=== PATIENT | female | born 1935 | race Caucasian/White ===

== ENCOUNTER → 2018-06-20 | Outpatient (CLI) | payer MEDICARE, BC | END | disposition home or self-care (01) | LOC: PF 12:18 | PROVIDERS: ATTEND Internal Medicine Critical Care Medicine | DX: R06.09 Other forms of dyspnea (principal) | CPT/HCPCS: 94618 ==

== ENCOUNTER 2023-05-25 10:51 | Emergency (ER) | payer MEDICARE, BC ==
[~2023-05-25] VITALS: Ht 167.6 cm; Wt 80.0 kg
[~2023-05-25 10:51] MED LIST: ACET-2708 PO; ASCO500C15 PO; BUDE0.5A3 IH; CALC-1209 PO; CHOL400D7 PO; CRAN500T4 PO; DILT120C88 MT; ESCI-7 PO; FAMO20TA8 PO; FURO-151 PO; GABA-529 PO; GABA-534 PO; IPRA3AMP31 NEB; METF-414 PO; MULT-1203 PO; NINT150C PO; POTA-204 PO; PRED10TA23 PO; S-AD200T8 PO; TRAM50TA3 PO; XAR15 PO
[2023-05-25 11:00] VITALS: O2SAT 96
[2023-05-25] MEDS ORDERED: SODIUM CHLORIDE 0.9% 1,000 ML IV ONE (11:00)
[2023-05-25 11:20] LABS: HEMATOCRIT. 37.7 % (36.0-48.0); HEMOGLOBIN. 12.5 g/dL (12.0-16.0); MEAN CORPUSCULAR HEMOGLOBIN 31.1 pg (28.0-32.0); MEAN CORPUSCULAR HGB CONC 33.2 g/dL (31.0-37.0); MEAN CORPUSCULAR VOLUME 93.9 fL (81.0-99.0); PLATELET 403 x1000/uL (130-400); RED BLOOD CELL COUNT 4.01 mill/uL (4.2-5.4); RED CELL DISTRIBUTION WIDTH 16.5 % (11.6-14.6); WHITE BLOOD COUNT 13.4 x1000/uL (4.5-11.0)
[2023-05-25 11:21] LABS: DIFFERENTIAL COMMENT 1
[2023-05-25 11:31] LABS: ALANINE AMINOTRANSFERASE 76 IU/L (10-49); ALBUMIN 3.6 g/dL (3.2-4.8); ASPARTATE AMINOTRANSFERASE 34 IU/L (<34); BILIRUBIN TOTAL 0.4 mg/dL (0.1-1.0); CALCIUM 9.3 mg/dL (8.7-10.4); CARBON DIOXIDE 33 mEq/L (21-32); CHLORIDE 98 mEq/L (98-107); CREATININE 0.6 mg/dL (0.6-1.0); GLUCOSE 150 mg/dL (70-105); SODIUM 138 mEq/L (136-145); TROPONIN I HIGH SENSITIVITY 17 ng/L (3.0-34); UREA NITROGEN BLOOD 22 mg/dL (9-23)
[2023-05-25 11:32] LABS: INR 1.1; PROTHROMBIN TIME 11.9 sec (9.6-11.0)
[2023-05-25 12:16] VITALS: BP 103/68; PULSE 89; RESP 20; TEMP 98.3
[2023-05-25 14:35] LABS: ANISOCYTOSIS 1+; PLATELET ESTIMATE SLIGHTLY INCREASED
== END 2023-05-25 15:08 | disposition home or self-care (01) ==
LOC: ER 10:51
DX: I48.91 Unspecified atrial fibrillation (principal); E11.9 Type 2 diabetes mellitus without complications; I11.0 Hypertensive heart disease with heart failure; I50.9 Heart failure, unspecified
CPT/HCPCS: 99284; 71045; 80053; 83880; 85025; 85610; 87040; 84484; 36415; J7030

== ENCOUNTER 2024-12-09 12:16 | Inpatient (IN) | payer MEDICARE, BC ==
[~2024-12-09] VITALS: Ht 167.6 cm; Wt 67.6 kg
[~2024-12-09 12:16] MED LIST changes: +ASCO500C14 PO; -ASCO500C15 PO
[2024-12-09] MEDS ORDERED: FUROSEMIDE 20MG/2ML VIAL IVP ONE (13:30)
[2024-12-09] MEDS: IPRATROPIUM/ALBUTEROL 0.5-3(2.5)MG/3ML NEB HHN ONE (13:44)
[2024-12-09 13:45] VITALS: PULSE 71; RESP 32; O2SAT 97
[2024-12-09] MEDS ORDERED: METHYLPREDNISOLONE 40MG/ML INJ IV ONE (13:45)
[2024-12-09] MEDS: METHYLPREDNISOLONE SOD SUCC 40MG/ML (ACT-O-VIAL) IV NR (14:20)
[2024-12-09 14:48] LABS: BASOPHILS % 0.2 % (0.0-2.0); EOSINOPHILS % 4.4 % (0.0-5.0); HEMATOCRIT. 28.8 % (36.0-48.0); HEMOGLOBIN. 9.4 g/dL (12.0-16.0); LYMPHOCYTES % 26.8 % (20.0-50.0); MEAN PLATELET VOLUME 7.9 fl (7.4-10.4); MONOCYTES % 5.9 % (2.0-8.0); NEUTROPHILS % 62.7 % (40.0-76.0); PLATELET 449 x1000/uL (130-400); RED BLOOD CELL COUNT 3.03 mill/uL (4.2-5.4); RED CELL DISTRIBUTION WIDTH 19.2 % (11.6-14.6)
[2024-12-09 14:59] LABS: CREATININE 0.7 mg/dL (0.6-1.0)
[2024-12-09 15:00] LABS: UREA NITROGEN BLOOD 24 mg/dL (9-23)
[2024-12-09 15:02] LABS: TROPONIN I HIGH SENSITIVITY 8 ng/L (3.0-34)
[2024-12-09 16:25] VITALS: BP 96/59; PULSE 101; RESP 16; TEMP 36.5
[2024-12-09] MEDS ORDERED: METO-385 PO (16:39)
[2024-12-09] MEDS ORDERED: FURO40TA5 PO (16:39)
[2024-12-09 16:40] VITALS: BP 96/59; PULSE 101; RESP 16; TEMP 36.4; O2SAT 87
[2024-12-09] MEDS ORDERED: ONDANSETRON HCL 4MG/2ML INJ IV PRN (16:45)
[2024-12-09] MEDS ORDERED: HYDROCODONE/ACETAMINOPHEN 5/325MG TABLET PO PRN (16:45)
[2024-12-09] MEDS ORDERED: CLONIDINE 0.1MG TABLET PO PRN (16:45)
[2024-12-09] MEDS ORDERED: MAGNESIUM/ALUMINUM HYDROXIDE/SIMETHICONE 30ML UDC PO PRN (16:45)
[2024-12-09] MEDS ORDERED: NALOXONE HCL 0.4MG/ML VIAL IV PRN (17:15)
[2024-12-09] MEDS: ENOXAPARIN 30MG/0.3ML SYR SUBCUT SCH (19:10)
[2024-12-09] MEDS: METHYLPREDNISOLONE SOD SUCC 40MG/ML (ACT-O-VIAL) IV SCH (19:11)
[2024-12-09] MEDS: LEVOFLOXACIN 500MG PREMIX 100 ML IV NR (19:52)
[2024-12-09 20:00] VITALS: BP 91/51; PULSE 94; RESP 18; TEMP 36.5; O2SAT 97
[2024-12-09 22:29] LABS: TROPONIN I HIGH SENSITIVITY 7 ng/L (3.0-34)
[2024-12-09] MEDS: IPRATROPIUM/ALBUTEROL 0.5-3(2.5)MG/3ML NEB NEB SCH (23:37)
[2024-12-09] MEDS: ACETYLCYSTEINE 200MG/ML 20% VIAL 4ML INH SCH (23:37)
[2024-12-09 23:41] VITALS: PULSE 78; RESP 22; O2SAT 97
[2024-12-10] VITALS (11 sets, daily range): BP systolic 92–114; BP diastolic 52–69; PULSE 74–88; RESP 16–20; TEMP 36.1–36.7; O2SAT 92–99
[2024-12-10] MEDS: ACETAMINOPHEN 325MG TABLET PO PRN (02:47)
[2024-12-10] MEDS: GABAPENTIN 100MG CAPSULE PO SCH (08:47)
[2024-12-10] MEDS: METOPROLOL SUCCINATE 50MG ER TABLET PO SCH (08:48)
[2024-12-10] MEDS: FUROSEMIDE 40MG TABLET PO SCH (08:48)
[2024-12-10] MEDS: PANTOPRAZOLE SODIUM 40 MG/VIAL IV SCH (08:49)
[2024-12-10 09:07] LABS: BASOPHILS % 0.0 % (0.0-2.0); EOSINOPHILS % 0.0 % (0.0-5.0); HEMATOCRIT. 28.7 % (36.0-48.0); HEMOGLOBIN. 9.4 g/dL (12.0-16.0); LYMPHOCYTES % 12.2 % (20.0-50.0); MEAN PLATELET VOLUME 8.2 fl (7.4-10.4); MONOCYTES % 0.6 % (2.0-8.0); NEUTROPHILS % 87.2 % (40.0-76.0); PLATELET 434 x1000/uL (130-400); RED BLOOD CELL COUNT 3.06 mill/uL (4.2-5.4); RED CELL DISTRIBUTION WIDTH 18.5 % (11.6-14.6)
[2024-12-10 09:12] LABS: TROPONIN I HIGH SENSITIVITY 5 ng/L (3.0-34)
[2024-12-10] MEDS ORDERED: LEVOFLOXACIN 500MG PREMIX 100 ML IV SCH (11:00)
[2024-12-10] MEDS: LEVOFLOXACIN 500MG PREMIX 100 ML IV SCH (13:06)
[2024-12-10 14:47] LABS: CREATININE 0.7 mg/dL (0.6-1.0); UREA NITROGEN BLOOD 27 mg/dL (9-23)
[2024-12-10] MEDS: LEVOFLOXACIN 250MG PREMIX 50 ML IV SCH (18:11)
[2024-12-11] VITALS (11 sets, daily range): BP systolic 97–116; BP diastolic 57–68; PULSE 84–97; RESP 17–18; TEMP 36.2–36.4; O2SAT 91–95
[2024-12-11] MEDS ORDERED: NINTEDANIB ESYLATE 150 MG PO SCH (11:45)
[2024-12-11] MEDS: DILTIAZEM HCL 120MG CAPSULE ER 24HR PO SCH (12:15)
[2024-12-11] MEDS: ENOXAPARIN 40MG/0.4ML SYR SUBCUT SCH (13:10)
[2024-12-11 16:22] LABS: HEMATOCRIT. 27.5 % (36.0-48.0); HEMOGLOBIN. 9.0 g/dL (12.0-16.0); MEAN PLATELET VOLUME 8.0 fl (7.4-10.4); PLATELET 509 x1000/uL (130-400); RED BLOOD CELL COUNT 2.95 mill/uL (4.2-5.4); RED CELL DISTRIBUTION WIDTH 19.1 % (11.6-14.6)
[2024-12-11 16:48] LABS: CREATININE 0.9 mg/dL (0.6-1.0); UREA NITROGEN BLOOD 33.0 mg/dL (9-23)
[2024-12-11 17:42] LABS: LYMPHOCYTES % MANUAL 9.0 % (20.0-60.0); MONOCYTES % MANUAL 4.0 % (2.0-8.0); NEUTROPHILS % MANUAL 87.0 % (45.0-75.0); PLATELET ESTIMATE INCREASED
[2024-12-11] MEDS: GUAIFENESIN 200MG/10ML SUGAR FREE UDC PO PRN (18:37)
[2024-12-12] VITALS (11 sets, daily range): BP systolic 104–118; BP diastolic 60–78; PULSE 73–92; RESP 16–20; TEMP 34.7–36.6; O2SAT 91–99
[2024-12-12 08:06] LABS: BASOPHILS % 0.1 % (0.0-2.0); EOSINOPHILS % 0.0 % (0.0-5.0); HEMATOCRIT. 28.2 % (36.0-48.0); HEMOGLOBIN. 9.3 g/dL (12.0-16.0); LYMPHOCYTES % 11.1 % (20.0-50.0); MEAN PLATELET VOLUME 8.3 fl (7.4-10.4); MONOCYTES % 3.8 % (2.0-8.0); NEUTROPHILS % 85.0 % (40.0-76.0); PLATELET 504 x1000/uL (130-400); RED BLOOD CELL COUNT 3.03 mill/uL (4.2-5.4); RED CELL DISTRIBUTION WIDTH 19.0 % (11.6-14.6)
[2024-12-12 08:13] LABS: CREATININE 0.7 mg/dL (0.6-1.0); UREA NITROGEN BLOOD 36 mg/dL (9-23)
[2024-12-12] MEDS: CITALOPRAM HYDROBROMIDE 10MG TABLET PO SCH (08:46)
[2024-12-12] MEDS ORDERED: RIVAROXABAN 15 MG TABLET PO SCH (09:00)
[2024-12-12] MEDS: LEVOFLOXACIN 750MG PREMIX 150 ML IV SCH (14:18)
[2024-12-12] MEDS ORDERED: PRED10TA MT (14:44)
[2024-12-12] MEDS ORDERED: LEVO-65 MT (14:44)
[2024-12-12] MEDS ORDERED: GUAI120017 MT (14:44)
== END 2024-12-12 17:53 | disposition home health service (06) | DRG 196 ==
LOC: ER 13:08 → EDBEDREQ 15:17 → EDBEDREQTM 15:17 → ENRESERV 15:30 → 5WST 16:43
PROVIDERS: ADMIT Internal Medicine; ATTEND Internal Medicine
DX: J84.10 Pulmonary fibrosis, unspecified (principal); J96.21 Acute and chronic respiratory failure with hypoxia; J44.1 Chronic obstructive pulmonary disease with (acute) exacerbation; I50.32 Chronic diastolic (congestive) heart failure; I11.0 Hypertensive heart disease with heart failure; E03.9 Hypothyroidism, unspecified; E11.9 Type 2 diabetes mellitus without complications; G47.33 Obstructive sleep apnea (adult) (pediatric); I48.0 Paroxysmal atrial fibrillation; Z88.5 Allergy status to narcotic agent; Z88.6 Allergy status to analgesic agent; Z99.81 Dependence on supplemental oxygen; Z86.711 Personal history of pulmonary embolism
CPT/HCPCS: 36415; 71045; 80048; 83036; 83880; 84145; 84484; 85025; 85379; 93005; 93970; 94070; 94640; 94664; 98960; 99291; J1650; J1956; J2470; J2919; J7608